=== PATIENT | male | born 1965 ===

== ENCOUNTER 2017-06-30 09:28 | Inpatient (IN) | payer OTHER ==
[2017-06-21 08:39] VITALS: BMI 37.3
[~2017-06-30 09:28] MED LIST: Absorbable Gelatin Sponge Size 100 ONE; Bacitracin Ointment 30 GM TUBE ONE; Bupivacaine HCl 0.5% PF (10 ml) Inj ONE; Thrombin Topical 20,000 Intl Units Spray Kit TOP ONE; Vancomycin 1 gm/D5W 200 ml 0 GM/0 ML BAG IVPB ONE
[2017-06-30] MEDS ORDERED: Remifentanil 1 mg/3 ml Vial IV ONE (10:12)
[2017-06-30] MEDS ORDERED: Midazolam 2 MG/2 ML VIAL ONE (10:30)
[2017-06-30] MEDS ORDERED: Propofol 10 mg/ml Inj (20 ML) ONE (10:31)
[2017-06-30] MEDS ORDERED: Succinylcholine Chloride 20 mg/ml Syr (5 ml) IV ONE (10:31)
[2017-06-30] MEDS ORDERED: Phenylephrine 10 mg/ml Inj ONE (10:31)
[2017-06-30] MEDS ORDERED: Propofol 10 mg/ml 1,000 MG/100 ML VIAL ONE ×2 (10:33→10:49)
[2017-06-30] MEDS ORDERED: Lactated Ringer's 1,000 ML IV ONE ×3 (10:50→17:00)
[2017-06-30] MEDS ORDERED: Lidocaine 1%/Epinephrine 1:100000 30 ml vial IJ ONE (11:00)
[2017-06-30] MEDS ORDERED: ceFAZolin IV 2 gm in Dextrose 1 GM/50 ML BAG IVPB ONE (11:03)
[2017-06-30] MEDS ORDERED: ceFAZolin IV 1 gm in Dextrose 1 GM/50 ML BAG IVPB ONE (11:03)
[2017-06-30] MEDS: HYDROmorphone 0.5 mg/0.5 ml ISec IVP PRN ×4 (13:14→13:39)
[2017-06-30] MEDS ORDERED: Lactated Ringer's 1,000 ML IV SCH (13:15)
[2017-06-30] MEDS ORDERED: HYDROmorphone 0.5 mg/0.5 ml ISec ONE (13:39)
--- NOTE | 2017-06-30 16:23 | RAD ---
PROCEDURE: Intraoperative fluoroscopy HISTORY: HERNIATED DISC COMPARISON: Not available TECHNIQUE: Intraoperative fluoroscopy was provided for anterior fixation of lower cervical spine. Total time of fluoroscopy was 19.0 seconds. FINDINGS: Multiple fluoroscopic spot films are submitted. Films are on file for review. IMPRESSION: Fluoroscopy provided
[2017-06-30] MEDS: Oxycodone/Acetaminophen 5/325 mg Tab PO PRN ×2 (18:03→22:54)
[2017-06-30] MEDS: Potassium Ch 20mEq in D5-1/2NS 1,000 ML IV SCH (20:30)
[2017-07-01] MEDS: Oxycodone/Acetaminophen 5/325 mg Tab PO PRN ×2 (06:02→10:16)
[2017-07-01 08:32] VITALS: BP 107/71; PULSE 75; RESP 19; TEMP 97.9; O2SAT 95
[2017-07-01] MEDS: Potassium Ch 20mEq in D5-1/2NS 1,000 ML IV SCH (10:20)
--- NOTE | 2017-07-01 12:06 | CP.PCM.PN ---
Subjective - Date & Time of Evaluation Date of Evaluation: 07/01/17 Time of Evaluation: 12:05 - Subjective Subjective: doing well no deficits clear for d/c home Objective - Vital Signs/Intake and Output Vital Signs (last 24 hours): Temp Pulse Resp BP Pulse Ox 97.9 F 75 19 107/71 95 07/01/17 07:20 07/01/17 07:20 07/01/17 07:20 07/01/17 07:20 07/01/17 07:20 - Medications Medications: Current Medications Potassium Chloride/Dextrose/Sod Cl (Potassium Chl 20 Meq In D5-1/2ns) 1,000 mls @ 100 mls/hr IV .Q10H LEOBARDO Last Admin: 07/01/17 10:20 Dose: Not Given Lactated Ringer's (Lactated Ringer's) 1,000 mls @ 100 mls/hr IV .Q10H LEOBARDO Ondansetron HCl (Zofran Inj) 4 mg IVP DAILY@ONCE PRN PRN Reason: Nausea/Vomiting Last Admin: 07/01/17 06:06 Dose: 4 mg Oxycodone/Acetaminophen (Percocet 5/325 Mg Tab) 2 tab PO Q4H PRN PRN Reason: Pain, moderate (4-7) Stop: 07/03/17 13:05 Last Admin: 07/01/17 10:16 Dose: 2 tab
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
== END 2017-07-01 13:47 | disposition home or self-care (01) | DRG 473 ==
LOC: C.SDS 09:28 → C.9S 13:00 → C.6T 20:19
PROVIDERS: ADMIT Neurological Surgery; ATTEND Neurological Surgery
PROC: 0RT30ZZ Resection of Cervical Vertebral Disc, Open Approach (ICD-10-PCS; principal; 2017-06-30 11:00)
PROC: 0RG2070 Fusion of 2 or more Cervical Vertebral Joints with Autologous Tissue Substitute, Anterior Approach, Anterior Column, Open Approach (ICD-10-PCS; 2017-06-30 11:00)
DX: M50.021 Cervical disc disorder at C4-C5 level with myelopathy (principal); M50.022 Cervical disc disorder at C5-C6 level with myelopathy; M48.02 Spinal stenosis, cervical region